=== PATIENT | female | born 1970 | race Caucasian/White ===

== ENCOUNTER 2016-11-14 08:06 | Observation (INO) | payer OTHER ==
[~2016-11-14] VITALS: Ht 160 cm; Wt 91.3 kg
[~2016-11-14 08:06] MED LIST: ACET-166 PO; CANA300T PO; HYDR-3583 PO; METF1000 PO; METO50TA11 PO; PRIL20CA9 PO; VALS80TA2 PO
[2016-11-14] MEDS ORDERED: INSULIN HUMAN REGULAR 1,000 UNITS/10 ML VIAL SQ PRN (09:30)
[2016-11-14] MEDS: LACTATED RINGER'S 1000 ML IV SCH (09:30)
[2016-11-14] MEDS ORDERED: HEPARIN SODIUM - SQ 10,000 UNITS/ML VIAL SQ SCH (09:30)
[2016-11-14] MEDS: SODIUM CHLORID 0.9% 500 ML IV SCH ×2 (09:30→19:39)
[2016-11-14] MEDS ORDERED: METOPROLOL TARTRATE 25 MG TAB PO PRN (09:30)
[2016-11-14] MEDS ORDERED: ceFAZolin 2 GM PREMIX 50 ML IV SCH (09:30)
[2016-11-14 10:02] VITALS: BP 164/97; PULSE 80; RESP 18; TEMP 98.2; O2SAT 97
[2016-11-14] MEDS ORDERED: APREPITANT 40 MG CAP ONE (11:01)
[2016-11-14] MEDS ORDERED: MIDAZOLAM HCL 2 MG/2 ML VIAL ONE (11:03)
[2016-11-14] MEDS ORDERED: FAMOTIDINE 20 MG/2 ML VIAL ONE (11:03)
[2016-11-14] MEDS ORDERED: DEXAMETHASONE SOD PHOS 4 MG/ML VIAL ONE (11:03)
[2016-11-14] MEDS ORDERED: HYDROmorphone HCL PF 2 MG/ML VIAL ONE (11:05)
[2016-11-14] MEDS ORDERED: ACETAMINOPHEN 1000 MG/100 ML VIAL IV ONE (11:06)
[2016-11-14] MEDS ORDERED: LIDOCAINE 1%/EPINEPHrine 1:100,000 SOLN 30 ML VIAL INFIL ONE (12:05)
[2016-11-14] MEDS ORDERED: METHYLENE BLUE 100 MG/10 ML VIAL OTHER ONE (14:10)
[2016-11-14] MEDS ORDERED: ceFAZolin INJ 1,000 MG VIAL IV ONE (14:21)
[2016-11-14] MEDS: D5-1/2 NS + KCL 20 MEQ INJ 1,000 ML IV SCH (15:42)
[2016-11-14] MEDS ORDERED: ONDANSETRON HCL 4 MG/2 ML VIAL IVP PRN (15:45)
[2016-11-14] MEDS ORDERED: traMADol HCL 50 MG TAB PO PRN (15:45)
[2016-11-14] MEDS ORDERED: oxyCODONE/ACETAMINOPHEN 5 MG/325 MG TAB PO PRN ×2 (15:45)
[2016-11-14] MEDS ORDERED: diphenhydrAMINE HCL 25 MG CAP PO PRN (15:45)
[2016-11-14] MEDS ORDERED: SODIUM CHLORIDE 0.9% FLUSH 10 ML FLUSH IV FLUSH PRN (15:45)
[2016-11-14] MEDS ORDERED: LORazepam 0.5 MG TAB PO PRN (15:45)
[2016-11-14] MEDS: INSULIN NovoLIN REGULAR SUPPLEMENTAL SCALE SQ SCH ×2 (16:00→21:00)
[2016-11-14] MEDS ORDERED: fentaNYL CITRATE 250 MCG/5 ML AMP ONE (16:03)
[2016-11-14] MEDS ORDERED: *ONDANSETRON 4 MG VIAL PERIprocedural Use ONLY ONE (16:47)
[2016-11-14] MEDS ORDERED: *morphine SULFATE 8 MG/ML PERIprocedure ONLY ONE ×2 (16:49→17:01)
[2016-11-14 18:44] VITALS: BP 112/75; PULSE 67; RESP 15; TEMP 96.7; O2SAT 97
[2016-11-14] MEDS: HYDROmorphone HCL PF 1 MG/ML VIAL IVP PRN (18:44)
[2016-11-14 20:00] VITALS: BP 121/64; PULSE 65; RESP 16; TEMP 97.1; O2SAT 93
[2016-11-14] MEDS: SODIUM CHLORIDE 0.9% FLUSH 10 ML FLUSH IV FLUSH SCH (21:00)
[2016-11-14 21:15] VITALS: O2SAT 97
[2016-11-14] MEDS ORDERED: METOCLOPRAMIDE HCL 10 MG/2 ML VIAL IV PRN (22:15)
[2016-11-14] MEDS ORDERED: METOCLOPRAMIDE HCL 10 MG/2 ML VIAL IV ONE (22:15)
[2016-11-14] MEDS ORDERED: DEXTROSE 50% IN WATER 50 ML VIAL(D50) IV PUSH PRN (22:45)
[2016-11-14] MEDS ORDERED: GLUCAGON 1 MG/ML VIAL OTHER PRN (22:45)
[2016-11-15] VITALS: BP 99/52; PULSE 62; RESP 16; TEMP 97.5; O2SAT 93
[2016-11-15] MEDS: D5-1/2 NS + KCL 20 MEQ INJ 1,000 ML IV SCH ×2 (01:23→12:35)
[2016-11-15] MEDS: HYDROmorphone HCL PF 1 MG/ML VIAL IVP PRN ×4 (01:24→19:55)
[2016-11-15 04:00] VITALS: BP 110/63; PULSE 80; RESP 16; TEMP 96.8; O2SAT 95
[2016-11-15] MEDS: INSULIN NovoLIN REGULAR SUPPLEMENTAL SCALE SQ SCH ×3 (05:33→17:45)
[2016-11-15] MEDS ORDERED: OXYC1TAB63 PO (06:05)
[2016-11-15 06:57] LABS: BASOPHIL % 0.2 % (0.0-2.0); EOSINOPHIL # 0.1 TH/MM3 (0-0.4); EOSINOPHIL % 0.6 % (0.0-4.0); HEMATOCRIT 34.9 % (35.0-46.0); LYMPH % 13.6 % (9.0-44.0); LYMPHOCYTE # 1.4 TH/MM3 (1.0-4.8); MEAN CELL VOLUME 67.1 FL (80.0-100.0); MEAN CORPUSCULAR HEMOGLOBIN 20.9 PG (27.0-34.0); MEAN CORPUSCULAR HGB CONC 31.1 % (32.0-36.0); MONO % 7.5 % (0.0-8.0); NEUT % 78.1 % (16.0-70.0); PLATELET COUNT 273 TH/MM3 (150-450); RED CELL DISTRIBUTION WIDTH 14.9 % (11.6-17.2); WHITE BLOOD COUNT 10.3 TH/MM3 (4.0-11.0)
[2016-11-15 07:07] LABS: HEMO FLAGS AUTO DIFF
[2016-11-15 07:20] LABS: BICARBONATE 30.3 MEQ/L (21.0-32.0)
[2016-11-15 08:00] VITALS: BP 105/57; PULSE 64; RESP 18; TEMP 97.4; O2SAT 98
[2016-11-15 08:09] LABS: SCAN/DIFF AUTO DIFF CONFIRMED
[2016-11-15] MEDS: SODIUM CHLORIDE 0.9% FLUSH 10 ML FLUSH IV FLUSH SCH (08:25)
[2016-11-15] MEDS ORDERED: HYDROCHLOROTHIAZIDE 12.5 MG CAP PO SCH (09:00)
[2016-11-15] MEDS ORDERED: NON-FORMULARY DRUG (Valsartan-Hydrochlorothiazide 1 TAB) PO SCH (09:00)
[2016-11-15] MEDS ORDERED: PANTOPRAZOLE SOD 20 MG DELAYED RELEASE TAB PO SCH (09:00)
[2016-11-15] MEDS ORDERED: VALSARTAN 80 MG TAB PO SCH (09:00)
[2016-11-15] MEDS ORDERED: METOPROLOL SUCCINATE 50 MG EXTENDED RELEASE TAB PO SCH (09:00)
[2016-11-15] MEDS: LACTATED RINGER'S 1000 ML IV SCH (09:30)
[2016-11-15 09:55] VITALS: O2SAT 95
[2016-11-15 12:00] VITALS: BP 117/67; PULSE 82; RESP 18; TEMP 98.4; O2SAT 95
[2016-11-15] MEDS ORDERED: NEOSTIGMINE 3 MG/3 ML SYR IV ONE (12:00)
[2016-11-15] MEDS ORDERED: KETOROLAC TROMETHAMINE 60 MG/2 ML (IM) VIAL IM ONE (12:00)
[2016-11-15] MEDS ORDERED: PROPOFOL 200 MG/20 ML AMP IV ONE (12:00)
[2016-11-15] MEDS ORDERED: ONDANSETRON HCL 4 MG/2 ML VIAL IV PUSH ONE (12:00)
[2016-11-15] MEDS ORDERED: LACTATED RINGER'S 1000 ML INJ 2,000 ML IV ONE (12:00)
[2016-11-15] MEDS ORDERED: PHENYLEPH/NS 1000 MCG/10 ML SYR IV ONE (12:00)
[2016-11-15] MEDS ORDERED: ePHEDrine/NS 25 MG/5 ML SYR IV ONE (12:00)
[2016-11-15 16:00] VITALS: BP 107/60; PULSE 67; RESP 18; TEMP 97.2; O2SAT 100
--- NOTE | 2016-11-19 09:41 | MP ---
cc: VALENCIA NAVA MD,RACHID JAIMES,JOSE DANIEL MCALLISTER DATE OF SURGERY 11/14/2016 PREOPERATIVE DIAGNOSIS 1. Premenopausal breast cancer. 2. BRCA positive mutation. 3. Desires therapeutic and prophylactic gynecologic surgery. POSTOPERATIVE DIAGNOSIS 1. Premenopausal breast cancer. 2. BRCA positive mutation. 3. Desires therapeutic and prophylactic gynecologic surgery. 4. Extensive pelvic and intraperitoneal adhesions. PROCEDURE Robotic-assisted laparoscopic hysterectomy, bilateral salpingo-oophorectomy, extensive lysis of adhesions. SURGEON Valencia Nava MD [employer] [place] registered sales assistant ANESTHESIA General endotracheal anesthesia ESTIMATED BLOOD LOSS 150 cc IV FLUIDS 2000 cc URINE OUTPUT 500 cc HISTORY This is a 45-year-old female who was diagnosed with breast cancer in their 30s, has been treated for recurrence of breast cancer, underwent genetic counseling, genetic testing found to the BRCA mutation positive. She has been counseled regarding the potential therapeutic value of removing the tubes and ovaries, as well as the potential value of hysterectomy. The pros, cons, risks and benefits discussed. She is in favor of gynecologic surgery for both the therapeutic and prophylactic benefit and presents now for that endeavor. FINDINGS On exam under anesthesia, the cervix is deviated to the right pelvis and there is some difficulty accessing and dilating the cervix, but it sounds to the depth of 6 cm with uncertainty whether not this represents the entire depth of the uterus. The cervix grossly appeared normal. Upon laparoscopy, there are adhesions. The omentum is a adherent densely to the anterior abdominal wall. The uterus and adnexa are not in their normal anatomic position in the pelvis, but are in fact plastered against the anterior abdominal wall. There is a thick plaque of adhesions between the uterine fundus and the anterior abdominal wall that appears as though is suspected from section scar adherent or even inadvertently sewn to the anterior abdominal wall given the extensive nature of adhesions. Once the anatomy was reestablished and the organs were evaluated, tubes and ovaries were grossly normal. There was no obvious abnormality within the uterus. The peritoneal surfaces were smooth. There were no peritoneal implants. No obvious adenopathy. There was a small nodule in the distal omentum, but it was felt it probably represented a segment of fallopian tube. Nevertheless, this was removed as biopsied and sent for permanent histopathologic analysis. STATEMENT OF COMPLEXITY The complexly this case in the time required was significantly increased due to the extensive adhesions in the pelvis. It is estimated that an additional 90 minutes were required to lyse adhesions to gain safe access to the peritoneal and pelvic cavities to restore normal anatomy and to accomplish surgical objectives. A modifier should be applied accordingly. PROCEDURE She was taken to the operating room, placed in the dorsal lithotomy position after general endotracheal anesthesia was administered. A time-out was undertaken. The patient was identified by sight recognition and hospital ID bracelet and the proposed procedure was reviewed and confirmed. She was carefully positioned in padded Tai stirrups. Her arms were padded and secured to the side. She was further secured to the operating table with egg crate padding and tape in a cross chest over the shoulder fashion. All sites noted to be properly aligned with no malalignments or pressure points. She was prepped in a sterile fashion, draped below the waist, placed in high lithotomy position, cervix was grasped. The cervix was dilated. The uterine cavity was sounded with findings as described above and a standard V-Care manipulator was inserted and secured in the usual fashion. Edmonds catheter placed in the bladder. She was returned to low lithotomy position. A change of sterile gloves was undertaken. We completed draping in anticipation of laparoscopy, confirmed that an orogastric airway was in the stomach on suction. With manual elevation of the abdominal wall, a 5 mm cannula was placed in the left upper quadrant under direct laparoscopic visualization and an atraumatic entry was confirmed. Carbon dioxide gas was insufflated. A 12 mm cannula placed in the midline above the umbilicus. An 8 mm cannula placed in the right upper quadrant and left lateral quadrant. Sharp dissection was used to free the omentum from the anterior abdominal wall and to gain visibility to the pelvis where the markedly abnormal distribution of pelvic organs was identified with extensive scarring as noted above. Additional lysis of adhesions was taken down with blunt and sharp dissection until the uterus, cervix and adnexa could be at least identified. She was placed in steep Trendelenburg position. Three Ray-Renata sponges were placed around the root of the small bowel mesentery and the robotic system was brought into the operative field and attached in the usual fashion. Monopolar scissors, fenestrated bipolar forceps and Prograsp manipulators were placed in arms number 1,2, and 3 respectively and I took my place at the surgeon's console. Additional lysis of adhesion was carried out. The left round ligament was identified, it was isolated, cauterized and transected. The anterior and portion leafs of the broad ligament were opened. The left ureter was identified. The left infundibulopelvic ligament was isolated. The intervening peritoneum was opened. The infundibulopelvic ligament was cauterized at the level of the pelvic brim and transected. Attention was directed toward the right side where the right round ligament was cauterized and transected. The anterior and posterior leafs of the broad ligament were opened. The right ureter was identified. The right infundibulopelvic ligament was isolated. The intervening peritoneum was opened. The infundibulopelvic ligament was cauterized and transected at the level of the pelvic brim. The posterior peritoneum opened along the posterior right and left sides of the uterus and cervix. An additional lysis of adhesions was carried out to skeletonize the uterine vessels bilaterally. The bladder was filled with 300 cc of saline to help identify the location of the bladder such that further dissection and skeletonization of the uterine vessels were carried out and the vesicouterine peritoneum was dissected off the lower uterine segment and cervix. Now the uterine vessels were cauterized bilaterally to devascularize the uterus at which point dissection was initiated to try to free the uterine fundus from its dense adherent involvement to the anterior abdominal wall. The fundus was from the anterior abdominal wall with sharp dissection and encircled with cautery in a stepwise fashion until the uterus was now detached from the anterior abdominal wall and now there was mobility. We re-position the V-Care manipulator such that now the cap of it could be placed securely around the cervix and the manipulator could be advanced to the fundus to assist in countertraction and manipulation. The uterine vessels were transected on the left. The cardinal, paracervical and uterosacral ligaments were isolated, cauterized and transected in a stepwise fashion and then attention was directed toward the right side where the right uterine vessels were transected. The cardinal paracervical and uterosacral ligaments were isolated, cauterized and transected in a stepwise fashion. Further dissection ensured that the vesicouterine peritoneum was well below the level of the cervix and a circumferential colpotomy was performed the cervix from the upper vagina and the specimen was withdrawn transvaginally which included uterus, cervix, both tubes and ovaries. Instruments one and three exchanged for needle drivers as a 0 Vicryl suture was introduced. Three Ray-Renata sponges were each removed transvaginally using a ring forceps. Each were inspected and noted be removed in their entirety. Visual inspection confirmed there were no remaining foreign objects in the peritoneal cavity and preliminary counts were correct. The vaginal cuff was closed starting at the left corner full-thickness closure through the vaginal tissue, posterior peritoneum and uterosacral ligament tied via instrument tie. The closure was held on counter traction as a running full-thickness continuous closure that was carried across the vaginal apex to the contralateral corner where it was similarly secured, tied via instrument tie. The needle was cut and removed. A second 0 Vicryl suture was introduced, whereas there was no overt fascial defect along the anterior abdominal wall. There were areas where the fascia was irrigated where the most dense adhesions were and this was reinforced with a running 0 Vicryl suture to reinforce the fascia and peritoneum where the uterus had been removed from its adherence, tied via instrument tie. The needle was cut and removed. The pelvis and abdomen were thoroughly irrigated. Small bleeders rendered hemostatic with bipolar cautery. Good peristalsis of ureters. The bladder was again filled now with methylene blue. There was an excellent margin between the vaginal cuff suture line and edge of the bladder. No defects in the bladder. No thin spots. No extravasation of dye and the bladder was drained. The small nodule at the end of the omentum, which was thought to possibly either represent scar tissue or a small segment of the fallopian tube was isolated and with cautery and sharp dissection was transected and removed laparoscopically and sent for histopathologic evaluation as well. It was felt that all reasonable surgical objectives had been completed. The robotic instruments were removed. The robotic system was displacing from the operative field. I reentered the bedside under sterile condition to close the 12-mm fascial defect with interrupted 0 Vicryl sutures using a needle pass apparatus tied securely. The fascia was completely airtight and hemostatic. 3-0 Vicryl subcutaneous, 3-0 Vicryl subcuticular and Steri-Strips were used to close these incisions. She was returned to dorsal lithotomy position. Pelvic exam confirmed that the vaginal cuff was well-supported. There were no vaginal lacerations. No remaining foreign objects in the vagina. Preliminary and final counts were correct. She was returned to dorsal supine position and was pending reversal of anesthesia. The remaining amount Ron, hemostatic agent that was not used in the pelvis, placed on the perineum for some superficial irritation. I left the operating room to precede her to the Post Anesthesia Care Unit and to speak with family member who was waiting. MD YOUSIF Lindsay/LEW /8:48 AM /9:18 AM
== END 2016-11-15 21:00 | disposition home or self-care (01) ==
LOC: HSDC 08:06 → HOCA 19:21
PROVIDERS: ADMIT Obstetrics & Gynecology Gynecologic Oncology; ATTEND Obstetrics & Gynecology Gynecologic Oncology
DX: Z40.09 Encounter for prophylactic removal of other organ (principal); N87.9 Dysplasia of cervix uteri, unspecified; N85.8 Other specified noninflammatory disorders of uterus; N83.8 Other noninflammatory disorders of ovary, fallopian tube and broad ligament; N70.11 Chronic salpingitis; C50.919 Malignant neoplasm of unspecified site of unspecified female breast; K66.0 Peritoneal adhesions (postprocedural) (postinfection); I10 Essential (primary) hypertension; E78.5 Hyperlipidemia, unspecified; J45.909 Unspecified asthma, uncomplicated; K21.9 Gastro-esophageal reflux disease without esophagitis; D56.3 Thalassemia minor; Z98.51 Tubal ligation status; Z15.01 Genetic susceptibility to malignant neoplasm of breast
CPT/HCPCS: 00840; 58571; 80048; 82948; 85025; 88305; 88307; 88329; 94150; G0378; J0131; J0690; J1100; J1170; J1644; J1885; J2250; J2270; J2370; J2405; J2710; J2765; J3010; J3480; J7120; J8501; 88331